=== PATIENT | female | born 1940 | race Caucasian/White ===

== ENCOUNTER 2019-04-24 17:01 | Observation (INO) | payer MEDICARE, MEDICAID ==
[~2019-04-24] VITALS: Ht 165.1 cm; Wt 120.5 kg
[~2019-04-24 17:01] MED LIST: ANTIACID PO; ARICEPT 5MG PO; ASPIRIN 81M81 MG/TA2 PO; CELEBREX 200MG200 MG PO; COLACE 100100 MG/CAP PO; FENTANYL 25 MCG TOP; FLEXERIL5 MG PO; FLONASE NASAL S16 GM NS; HYZAAR 25 MG-101 TAB PO; HYZAAR 50-12.1 UDTAB; INSULIN N (N100 U/ML SQ; KETOROLAC; LORTAB 5/500 501 TAB PO; NEURONTIN300 MG/CAP PO; NEURONTIN400 MG/CAP PO; NOVOLOG 100U100 U/M1; NOVOLOG 100U100 U/M1 SQ; OFLOXACIN; PREDNISOLONE 1%; PRILOSEC 20MG20 MG PO; RT ADVAIR 128 DISKUS IH; TYLENOL EXTRA500 M1 PO; VANCOMYCIN 11 G/VIA1 IV; WELLBUTRIN 100100 MG PO; ZOFRAN 4MG T4 MG/TAB PO
[2019-04-24] MEDS ORDERED: GLUCOPHAGE500 MG/TAB PO (17:16)
[2019-04-24] MEDS ORDERED: AMITRIPTYLINE H50 M1 PO (17:17)
[2019-04-24] MEDS ORDERED: VOLTAREN 75 DR75 MG PO (17:18)
[2019-04-24] MEDS ORDERED: ACTOS 15MG TAB15 MG PO (17:18)
[2019-04-24 19:20] LABS: BASO # 0.1 (0.0-0.2); BASO % 0.6 % (0.0-2.0); EOS # 0.1 (0.0-0.7); EOS % 0.9 % (0-4.0); GRAN # 13.1 (1.4-6.5); GRAN % 79.4 % (42.2-75.2); HEMATOCRIT 42.7 % (37.0-47.0); HEMOGLOBIN 13.1 g/dl (12.5-16.0); MEAN CELL VOLUME 78 fl (80.0-100.0); MEAN CORPUSCULAR HEMOGLOBIN 24 pg (27.0-31.0); MEAN CORPUSCULAR HGB CONC 31 g/dl (33.0-37.0); MEAN PLATELET VOLUME 9.1 fl (7.4-10.4); MONO # 1.1 (0.1-0.6); MONO % 6.6 % (1.7-9.3); PLATELET COUNT 331 K/mm3 (130-400); RED BLOOD COUNT 5.46 M/mm3 (4.10-5.30); REDCELL DISTRIBUTION WIDTH-CV 16.2 % (11.5-14.5)
[2019-04-24 19:45] LABS: ALBUMIN 4.1 gm/dL (3.5-5.0); BILIRUBIN,TOTAL 0.1 mg/dL (0.0-1.0); CREATININE, serum 0.71 (0.52-1.25); POTASSIUM 4.3 mmol/L (3.4-5.0); TOTAL PROTEIN 7.8 gm/dL (6.4-8.2)
[2019-04-24 22:03] VITALS: BP 151/78; PULSE 97
[2019-04-25] VITALS: BP 149/77; PULSE 93; TEMP 98.4
--- NOTE | 2019-04-25 01:37 | NUR ---
Patient to the floor at 2145. Noted to be grunting and groaning in pain. IV to right upper arm infusing NS. INT to right hand present, but was reported infiltrated. This was discontinued by this nurse. Dr. Stewart called and orders received. Patient states she has a list of her medications, but her friend took them home with her when she left. Will review Med Rec when this list is returned as patient isn't familiar with all the medications she takes. Sling placed to left arm to help hold it steady. States movement makes the pain worse. Upon arrival to the floor patient stated pain 9/10. Pain medication given and patient states pain is 8/10, but refuses 2nd tab of Percocet. Patient is currently resting in bed. Call light in reach. Denies any needs. WBC noted to be elevated. Dr. Stewart ordered a UA be obtained. Patient states she does have incontinence at home with frequency and urgency.
[2019-04-25 04:00] VITALS: BP 148/66; PULSE 84; TEMP 98.4
[2019-04-25 06:33] LABS: BASO # 0.1 (0.0-0.2); BASO % 0.6 % (0.0-2.0); EOS # 0.2 (0.0-0.7); EOS % 1.6 % (0-4.0); GRAN # 9.4 (1.4-6.5); GRAN % 72.8 % (42.2-75.2); HEMATOCRIT 40.5 % (37.0-47.0); HEMOGLOBIN 12.4 g/dl (12.5-16.0); LYMPH # 2.2 (1.2-3.4); LYMPH % 17.1 % (20.0-51.0); MEAN CELL VOLUME 79 fl (80.0-100.0); MEAN CORPUSCULAR HEMOGLOBIN 24 pg (27.0-31.0); MEAN CORPUSCULAR HGB CONC 31 g/dl (33.0-37.0); MEAN PLATELET VOLUME 10.1 fl (7.4-10.4); MONO % 7.6 % (1.7-9.3); PLATELET COUNT 280 K/mm3 (130-400); RED BLOOD COUNT 5.12 M/mm3 (4.10-5.30); REDCELL DISTRIBUTION WIDTH-CV 15.9 % (11.5-14.5)
[2019-04-25 06:40] LABS: ALBUMIN 3.8 gm/dL (3.5-5.0); BILIRUBIN,TOTAL 0.4 mg/dL (0.0-1.0); CALCIUM 8.7 mg/dL (8.4-10.2); CREATININE, serum 0.55 (0.52-1.25); POTASSIUM 4.5 mmol/L (3.4-5.0); TOTAL PROTEIN 7.1 gm/dL (6.4-8.2)
[2019-04-25 08:00] VITALS: BP 114/89; PULSE 76; TEMP 97.5
--- NOTE | 2019-04-25 10:00 | NUR ---
Patient alert and oriented, answers questions appropriately. See assessment. Patient c/o left scapula pain, splint in place. Neuros intact to LUE, no numbness or tingling, pulses palpable. Splint reapplied, patient repositioned with pillow support, pain improved. Aqua K pad applied to left scapula area. No other c/o at this time.
--- NOTE | 2019-04-25 10:17 | NUR ---
The patient's status was switched from inpatient to observation. WEST and scallop cutter machine, Evelyn, met with the patient to inform. The HONG form was presented and explained. The patient verbalized understanding, signed, and she was provided a copy. WEST then discussed a discharge plan. The patient lives alone in [place]. She states that her son (Marlon), [id number] (Sandy), and her other son (Fortino) live close by. She reports independence with ADLs and has a cane and walker. She does not have any home health services. The patient's PCP is Chelita Somers and she receives her medications at [place] [facility]. She reports no difficulties obtaining her meds. The patient does not have advanced directives in EMR, but she states that she does have them completed. She states that her son (Marlon) and [id number] (Sandy) are her DPOA-HC. The patient had a fractured scapula and states that she feels unsafe to return home at this time. WEST discussed the options of inpatient rehabs, private pay for SNF or a respite stay, or the option of staying with family and home health. The patient does has Medicare & Medicaid. The patient would like to know if her Medicaid would cover room and board to go to a facility. WEST presented and explained the patient choice form to the patient. The patient preferred 1) [facility]) [facility]) [facility]. Patient Choice form signed by the patient and she was provided a copy. WEST attempted to contact [facility] and [facility]. WEST left them both voicemails. WEST faxed the referral to [facility]. WEST consulted [place] with [facility]. PT/OT have been ordered. SW awaiting screens.
[2019-04-25 11:59] VITALS: BP 125/57; PULSE 80; TEMP 98.6
[2019-04-25] MEDS ORDERED: PERCOCET 325 MG1 TA2 PO (14:25)
[2019-04-25] MEDS ORDERED: Lidocaine 4% Patch TP (14:26)
[2019-04-25 14:46] VITALS: BP 125/57; PULSE 80; TEMP 98.6
--- NOTE | 2019-04-25 14:49 | NUR ---
Sandi, at [facility], reports that they are able to accept under Medicare Part B therapy services and that the patient's Medicaid will cover room and board. WEST informed the patient of this. The patient is agreeable to transfer there upon discharge. The patient is to discharge today, 04/25, to [facility] for an emergency admit for a skilled stay. Transportation to be by private vehicle, via the patient's son (Marlon). WEST informed Rosaura at [facility] of tentative departure time. No additional needs at this time.
--- NOTE | 2019-04-25 17:28 | NUR ---
Report called to [facility] in [place]. Patient transferred at 1725 via wheelchair/auto with family. Report called. Paperwork sent.
== END 2019-04-25 17:20 ==
LOC: COL.ER 17:01 → SURG 20:24
PROVIDERS: Emergency Medicine; ADMIT Surgery
DX: S42.102A Fracture of unspecified part of scapula, left shoulder, initial encounter for closed fracture (principal); W19.XXXA Unspecified fall, initial encounter; Z91.81 History of falling; Y93.01 Activity, walking, marching and hiking; Y92.009 Unspecified place in unspecified non-institutional (private) residence as the place of occurrence of the external cause; I10 Essential (primary) hypertension; E11.9 Type 2 diabetes mellitus without complications; Z79.4 Long term (current) use of insulin; M19.90 Unspecified osteoarthritis, unspecified site; Z90.49 Acquired absence of other specified parts of digestive tract; Z90.710 Acquired absence of both cervix and uterus; E66.9 Obesity, unspecified; Z79.82 Long term (current) use of aspirin; Z79.899 Other long term (current) drug therapy
CPT/HCPCS: G0378; J1170; J2405; J7030; J7120; Q9967

== ENCOUNTER 2021-05-17 07:50 | Day surgery (SDC) | payer MEDICARE, MEDICAID ==
[2021-05-17] VITALS (7 sets, daily range): BP systolic 141–158; BP diastolic 50–69; PULSE 74–84; TEMP 97.9–99.6
[~2021-05-17] VITALS: Ht 162.6 cm; Wt 110.5 kg
[~2021-05-17 07:50] MED LIST changes: +ACTOS 15MG TAB15 MG PO; +AMITRIPTYLINE H50 M1 PO; +GLUCOPHAGE500 MG/TAB PO; +Lidocaine 4% Patch TP; +PERCOCET 325 MG1 TA2 PO; +VOLTAREN 75 DR75 MG PO
[2021-05-17] MEDS ORDERED: TYLENOL 500MG500 MG PO (08:51)
[2021-05-17] MEDS ORDERED: RT ALBUTER2.5 MG/0.5 IH (08:51)
[2021-05-17] MEDS ORDERED: COLACE 100100 MG/CAP PO (08:52)
[2021-05-17] MEDS ORDERED: THROAT LOZENGES1 LOZ MM (08:53)
[2021-05-17] MEDS ORDERED: AMITRIPTYLINE H25 M1 PO (08:54)
[2021-05-17] MEDS ORDERED: DULCOLAX S10 MG/SUPP RC (08:54)
[2021-05-17] MEDS ORDERED: ARICEPT10 MG PO (08:54)
[2021-05-17] MEDS ORDERED: FLEET ENEM1 BOT/133 RC (08:55)
[2021-05-17] MEDS ORDERED: FLONASEALLERGY NS (08:56)
[2021-05-17] MEDS ORDERED: HYDRODIURIL50 MG PO (08:56)
[2021-05-17] MEDS ORDERED: COZAAR100 MG PO (08:57)
[2021-05-17] MEDS ORDERED: ZTLIDO1 EACH TP (08:57)
[2021-05-17] MEDS ORDERED: MILK OF MA400 MG/52 PO (08:59)
[2021-05-17] MEDS ORDERED: NAMENDA 10MG TA10 MG PO (09:00)
[2021-05-17] MEDS ORDERED: MIRALAX PA17 GM/Dose PO (09:00)
[2021-05-17] MEDS ORDERED: NYSTATIN POWDER15 GM TOP (09:01)
[2021-05-17] MEDS ORDERED: NOVOLIN 70/30 710 ML SQ (09:01)
[2021-05-17] MEDS ORDERED: PERCOCET 325 MG1 TA2 PO (09:03)
[2021-05-17] MEDS ORDERED: PROTONIX 40MG T40 MG PO (09:04)
[2021-05-17] MEDS ORDERED: REFRESH TEARS 330 ML OP (09:05)
[2021-05-17] MEDS ORDERED: DESYREL 50MG50 MG PO (09:05)
[2021-05-17] MEDS ORDERED: ULTRAM 50MG TAB50 MG PO (09:05)
[2021-05-17] MEDS ORDERED: WELLBUTRIN SR200 MG PO (09:06)
[2021-05-17] MEDS ORDERED: VOLTAREN GEL 1%1 TU TP (09:06)
[2021-05-17] MEDS ORDERED: ZYRTEC 10MG10 MG PO (09:07)
--- NOTE | 2021-05-17 11:42 | NUR ---
Patient returns to room 4 per cart from PACU and is alert. Taking sips of water. Temp 97.2 and sats 98% on 2L per nasal cannula. Foot of cart elevated and ice on the right ankle. Toes warm and pink on the right foot. Bulky benjamin wrap dressing dry with posterior splint noted. Siderails up x2 and call light in reach.
--- NOTE | 2021-05-17 11:57 | NUR ---
Resting and sipping on water. Denies pain or nausea.
--- NOTE | 2021-05-17 12:12 | NUR ---
Resting with eyes closed and offers no complaints.
--- NOTE | 2021-05-17 12:27 | NUR ---
Taking coffee and eating toast. Room air sats 98%. Foot of cart elevated.
--- NOTE | 2021-05-17 12:42 | NUR ---
Continues to eat toast and sip on coffee.
--- NOTE | 2021-05-17 12:55 | NUR ---
Voids on bedpan. IV discontinued and continues to deny pain or nausea.
--- NOTE | 2021-05-17 13:20 | NUR ---
Dressed and assisted into wheelchair with total lift. Right foot elevated.
--- NOTE | 2021-05-17 13:30 | NUR ---
Dismissal instructions given and voices understanding of these.
--- NOTE | 2021-05-17 13:50 | NUR ---
Patient dismissed to back to [facility] per wheelchair van and dismissal instructions with the patient.
--- NOTE | 2021-05-17 14:40 | NUR ---
Report called to Sandie JARQUIN at [facility] facility.
== END 2021-05-17 13:50 ==
LOC: SDCO 07:50
DX: S82.841A Displaced bimalleolar fracture of right lower leg, initial encounter for closed fracture (principal); S93.421A Sprain of deltoid ligament of right ankle, initial encounter; S93.431A Sprain of tibiofibular ligament of right ankle, initial encounter; V48.4XXA Person boarding or alighting a car injured in noncollision transport accident, initial encounter; I11.0 Hypertensive heart disease with heart failure; I50.9 Heart failure, unspecified; K21.9 Gastro-esophageal reflux disease without esophagitis; E11.42 Type 2 diabetes mellitus with diabetic polyneuropathy; M19.90 Unspecified osteoarthritis, unspecified site; Z79.4 Long term (current) use of insulin; Z79.84 Long term (current) use of oral hypoglycemic drugs; Z79.899 Other long term (current) drug therapy; Z79.82 Long term (current) use of aspirin; Z79.891 Long term (current) use of opiate analgesic
CPT/HCPCS: C1713; J0690; J1100; J2250; J2405; J2704; J2795; J3010; J7120